=== PATIENT | female | born 1945 | race Caucasian/White ===

== ENCOUNTER 2021-04-17 16:10 | Emergency (ER) | payer MEDICARE ==
[~2021-04-17] VITALS: Ht 172.7 cm; Wt 79.4 kg
[~2021-04-17 16:10] MED LIST: BYSTOLIC5 MG PO; METOPROLOL TART25 MG PO; PRAVASTATIN SOD20 MG PO
[2021-04-17] MEDS ORDERED: AUGMENTIN 875-1 EACH PO (17:20)
== END 2021-04-17 17:29 | disposition home or self-care (01) ==
LOC: ER 17:22
DX: L03.113 Cellulitis of right upper limb (principal); W55.03XA Scratched by cat, initial encounter; E78.00 Pure hypercholesterolemia, unspecified; F41.9 Anxiety disorder, unspecified
CPT/HCPCS: 99282

== ENCOUNTER 2023-09-25 16:56 | Observation (INO) | payer MEDICARE ==
[~2023-09-25] VITALS: Ht 165.1 cm; Wt 81.9 kg
[~2023-09-25 16:56] MED LIST changes: +AUGMENTIN 875-1 EACH PO
[2023-09-25] MEDS ORDERED: KETOROLAC TROMETHAMINE 30 MG/ML VIAL IV ONE (17:15)
[2023-09-25] MEDS ORDERED: ONDANSETRON HCL INJ 2MG/ML 2ML 2 MG/ML VIAL ONE (17:38)
[2023-09-25] MEDS ORDERED: ASPIRIN 81 MG CHEW TAB ONE (17:38)
[2023-09-25] MEDS ORDERED: NITROGLYCERIN 2% OINT 1 GM PKT ONE (17:39)
[2023-09-25] MEDS ORDERED: ACETAMINOPHEN 325 MG TAB ONE (17:39)
[2023-09-25] MEDS ORDERED: FAMOTIDINE 20 MG/2 ML VIAL IV ONE (17:39)
[2023-09-25] MEDS ORDERED: SODIUM CHLORIDE 0.9% 500ML 500 ML ONE (17:40)
[2023-09-25] MEDS: ONDANSETRON HCL INJ 2MG/ML 2ML 2 MG/ML VIAL IV ONE (18:11)
[2023-09-25] MEDS: ASPIRIN 81 MG CHEW TAB PO ONE (18:11)
[2023-09-25] MEDS: FAMOTIDINE 20 MG/2 ML VIAL IV ONE (18:11)
[2023-09-25] MEDS: ACETAMINOPHEN 325 MG TAB PO ONE (18:11)
[2023-09-25] MEDS: SODIUM CHLORIDE 0.9% 500ML 500 ML IV STA (18:11)
[2023-09-25] MEDS: NITROGLYCERIN 2% OINT 1 GM PKT TOP ONE (18:11)
[2023-09-25] MEDS ORDERED: SODIUM CHLORIDE FLUSH 10 ML SYR INJ PRN (18:45)
[2023-09-25] MEDS ORDERED: ENALAPRILAT IV INJ 1.25 MG/ML VIAL IV PRN (21:45)
[2023-09-25] MEDS ORDERED: CLONIDINE HCL 0.1 MG TAB PO PRN (21:45)
[2023-09-25 22:00] VITALS: BP 147/72; PULSE 86; RESP 18; TEMP 97.8; O2SAT 93
[2023-09-25] MEDS ORDERED: CITALOPRAM HBR20 MG PO (22:01)
[2023-09-25] MEDS ORDERED: PANTOPRAZOLE SO40 MG PO (22:01)
[2023-09-25] MEDS ORDERED: METOPROLOL SUCC50 MG PO (22:01)
[2023-09-25] MEDS ORDERED: METFORMIN HCL500 M1 PO (22:01)
[2023-09-25] MEDS: ONDANSETRON HCL INJ 2MG/ML 2ML 2 MG/ML VIAL IV PRN (22:20)
[2023-09-25] MEDS: METOPROLOL TARTRATE 25 MG TAB PO SCH (22:29)
[2023-09-25] MEDS: FAMOTIDINE 20 MG TAB PO SCH (22:29)
[2023-09-25] MEDS: ZOLPIDEM TARTRATE 5 MG TAB PO PRN (22:29)
[2023-09-25] MEDS: SIMVASTATIN 20 MG TAB PO SCH (22:29)
[2023-09-25] MEDS: ACETAMINOPHEN 325 MG TAB PO PRN (22:30)
[2023-09-25 22:41] VITALS: BP 154/81; PULSE 77; RESP 16; TEMP 97.8; O2SAT 97
[2023-09-26] VITALS (8 sets, daily range): BP systolic 138–162; BP diastolic 64–82; PULSE 62–86; RESP 16–18; TEMP 97.3–98.4; O2SAT 96–99
[2023-09-26] MEDS: NITROGLYCERIN 2% OINT 1 GM PKT TOP SCH (01:32)
[2023-09-26 08:37] LABS: CHOL/HDL RATIO 2.4 (3.0-3.6)
[2023-09-26 08:46] LABS: TROPONIN I 0.003 ng/mL (0-0.300)
[2023-09-26] MEDS: ASPIRIN 325 MG TAB EC PO SCH (09:35)
[2023-09-26] MEDS: VALSARTAN 160 MG TAB PO SCH (09:36)
[2023-09-26 10:11] LABS: BASOPHILS # (AUTO) 0.1 (0.0-0.1); BASOPHILS % 0.9 % (0.0-1.0); EOSINOPHILS # (AUTO) 0.1 (0.0-0.4); EOSINOPHILS % 1.3 % (0.0-6.0); HEMATOCRIT 38.7 % (34.2-44.1); HEMOGLOBIN 11.4 g/dL (12.0-16.0); LYMPHOCYTES # (AUTO) 2.9 (1.0-3.2); LYMPHOCYTES % 41.7 % (18.0-39.1); MEAN CORPUSCULAR HEMOGLOBIN 25.5 pg (28-32); MEAN CORPUSCULAR HGB CONC 29.5 g/dL (31-35); MEAN CORPUSCULAR VOLUME 86.6 fL (81-99); MONOCYTES # (AUTO) 0.6 (0.2-0.8); MONOCYTES % 8.7 % (4.4-11.3); NEUTROPHILS # (AUTO) 3.3 (2.1-6.9); NEUTROPHILS % 47.3 % (38.7-80.0); PLATELET COUNT 257 x10e3/uL (140-360); RED BLOOD COUNT 4.47 x10e6/uL (3.6-5.1); RED CELL DISTRIBUTION WIDTH 16.4 % (11.7-14.4); WHITE BLOOD COUNT 7.03 x10e3/uL (4.8-10.8)
[2023-09-26 10:29] LABS: ALBUMIN 3.3 g/dL (3.5-5.0); ALBUMIN/GLOBULIN RATIO 1.1 (0.8-2.0); ANION GAP 12.4 mmol/L (8-16); BILIRUBIN,TOTAL 0.5 mg/dL (0.2-1.2); CALCIUM 8.7 mg/dL (8.4-10.2); CREATININE, SERUM 0.99 mg/dL (0.57-1.11); POTASSIUM 4.4 mmol/L (3.5-5.1); TOTAL PROTEIN 6.3 g/dL (6.5-8.1)
[2023-09-26] MEDS ORDERED: REGADENOSON 0.4 MG/5 ML SYR IV ONE (14:13)
[2023-09-26] MEDS: MUPIROCIN 2% OINT 22 GM TUBE TOP SCH (16:34)
[2023-09-27] VITALS: BP 135/75; PULSE 77; RESP 16; TEMP 97.9; O2SAT 99
[2023-09-27 04:00] VITALS: BP 145/77; PULSE 77; RESP 17; TEMP 97.7; O2SAT 97
[2023-09-27 06:54] LABS: CALCIUM 8.9 mg/dL (8.4-10.2); CHOL/HDL RATIO 2.2 (3.0-3.6); CREATININE, SERUM 1.1 mg/dL (0.57-1.11)
[2023-09-27 06:57] LABS: BASOPHILS # (AUTO) 0.1 (0.0-0.1); BASOPHILS % 0.7 % (0.0-1.0); EOSINOPHILS # (AUTO) 0.2 (0.0-0.4); HEMATOCRIT 41.4 % (34.2-44.1); HEMOGLOBIN 12.9 g/dL (12.0-16.0); LYMPHOCYTES # (AUTO) 3.3 (1.0-3.2); LYMPHOCYTES % 43.2 % (18.0-39.1); MEAN CORPUSCULAR HEMOGLOBIN 25.4 pg (28-32); MEAN CORPUSCULAR HGB CONC 31.2 g/dL (31-35); MEAN CORPUSCULAR VOLUME 81.5 fL (81-99); MONOCYTES # (AUTO) 0.6 (0.2-0.8); MONOCYTES % 7.2 % (4.4-11.3); NEUTROPHILS # (AUTO) 3.6 (2.1-6.9); NEUTROPHILS % 46.6 % (38.7-80.0); PLATELET COUNT 305 x10e3/uL (140-360); RED BLOOD COUNT 5.08 x10e6/uL (3.6-5.1); RED CELL DISTRIBUTION WIDTH 16.4 % (11.7-14.4); WHITE BLOOD COUNT 7.62 x10e3/uL (4.8-10.8)
[2023-09-27 07:14] LABS: THYROID STIMULATING HORMONE 4.242 uIU/mL (0.350-4.940)
[2023-09-27 08:04] LABS: TROPONIN I 0.001 ng/mL (0-0.300)
[2023-09-27 08:06] VITALS: BP 134/76; PULSE 60; RESP 19; TEMP 97.9; O2SAT 99
[2023-09-27 09:00] VITALS: BP 134/76; PULSE 60; RESP 19; TEMP 97.9; O2SAT 99
[2023-09-27] MEDS ORDERED: METOPROLOL TARTRATE 25 MG TAB PO SCH (09:00)
[2023-09-27] MEDS: METFORMIN HCL 500 MG TAB CR PO SCH (09:35)
[2023-09-27] MEDS: CITALOPRAM HYDROBROMIDE 20 MG TAB PO SCH (09:35)
[2023-09-27] MEDS: PANTOPRAZOLE SOD 40 MG TABEC PO SCH (09:35)
[2023-09-27] MEDS: PRAVASTATIN 20 MG TAB PO SCH (09:35)
[2023-09-27] MEDS: ASPIRIN 81 MG ENTERIC COATED PO SCH (09:35)
[2023-09-27] MEDS: METOPROLOL SUCCINATE 25 MG TAB XL PO SCH (09:36)
[2023-09-27 12:10] VITALS: BP 142/74; PULSE 71; RESP 21; TEMP 98.1; O2SAT 99
[2023-09-27] MEDS ORDERED: ONDANSETRON HCL 4 MG ORAL DISINTEGRATING TAB PO PRN (14:15)
[2023-09-27 15:47] VITALS: BP 136/78; PULSE 68; RESP 19; TEMP 98.2; O2SAT 99
== END 2023-09-27 16:59 | disposition home or self-care (01) ==
LOC: FSED 17:01 → ERHOLD 18:45 → INTOOBSV 18:45 → MED/SURG2 22:10
PROVIDERS: ADMIT Family Medicine; ATTEND Family Medicine
DX: R07.9 Chest pain, unspecified (principal); K21.9 Gastro-esophageal reflux disease without esophagitis; K44.9 Diaphragmatic hernia without obstruction or gangrene; E11.9 Type 2 diabetes mellitus without complications; I16.0 Hypertensive urgency; E66.9 Obesity, unspecified; Z68.30 Body mass index [BMI] 30.0-30.9, adult; I07.1 Rheumatic tricuspid insufficiency; E78.00 Pure hypercholesterolemia, unspecified; F41.9 Anxiety disorder, unspecified; Z88.6 Allergy status to analgesic agent; Z11.52 Encounter for screening for COVID-19; Z79.84 Long term (current) use of oral hypoglycemic drugs; Z79.899 Other long term (current) drug therapy; Z82.49 Family history of ischemic heart disease and other diseases of the circulatory system
CPT/HCPCS: 0223U; 36415 ×2; 71046; 74176; 78452; 80048; 80053 ×2; 80061 ×2; 81003; 82550 ×2; 82553; 82948 ×2; 83880; 84443; 84484 ×3; 85025 ×3; 93005; 93017; 93306; 96374; 96375; 96376; 99252; 99284; A9502; G0378 ×3; J2405; J2785; J7040; S0164

== ENCOUNTER 2024-11-09 16:46 | Emergency (ER) | payer MEDICARE ==
[~2024-11-09] VITALS: Ht 165.1 cm; Wt 79.6 kg
[~2024-11-09 16:46] MED LIST changes: +CITALOPRAM HBR20 MG PO; +METFORMIN HCL500 M1 PO; +METOPROLOL SUCC50 MG PO; +PANTOPRAZOLE SO40 MG PO
[2024-11-09] MEDS ORDERED: AMOX TR-K CLV1 EAC2 PO (17:24)
[2024-11-09] MEDS ORDERED: ULTRAM 50MG50 MG PO ×2 (17:24→17:27)
[2024-11-09] MEDS ORDERED: DOXYCYCLINE HY100 MG PO (17:24)
[2024-11-09 17:47] VITALS: PULSE 69; RESP 16; TEMP 98.2; O2SAT 96
== END 2024-11-09 17:33 | disposition home or self-care (01) ==
LOC: FSED 17:02
DX: S80.812A Abrasion, left lower leg, initial encounter (principal); W55.03XA Scratched by cat, initial encounter; Y92.89 Other specified places as the place of occurrence of the external cause; I10 Essential (primary) hypertension; E11.9 Type 2 diabetes mellitus without complications; E78.00 Pure hypercholesterolemia, unspecified; F41.9 Anxiety disorder, unspecified
CPT/HCPCS: 99283